=== PATIENT | male | born 1970 | race Caucasian/White ===

== ENCOUNTER 2018-01-11 09:46 | Outpatient (CLI) | payer OTHER ==
--- NOTE | 2018-01-11 12:21 | RAD ---
RIGHT SHOULDER ARTHROGRAM: History: Pain. Comparison: None. FINDINGS: The patient was brought to the fluoroscopy suite where all questions were answered. Right arm was prepped and draped in normal sterile fashion. Attempt was made to anesthetize the right shoulder although the procedure had to be terminated as the patient was unable to tolerate laying in supine position and was getting a sick feeling thinking about the needle injection. IMPRESSION: Right shoulder arthrogram aborted before Lidocaine was inserted as the patient was unable to tolerate the needles. Patient will proceed to CT portion of the examination without intraarticular contrast. POS: [facility]
--- NOTE | 2018-01-11 13:29 | CT ---
CT RIGHT SHOULDER WITHOUT CONTRAST: HISTORY: M24.811, right shoulder pain and sprain. COMPARISON: Shoulder arthrogram. FINDINGS: The examination was performed without intraarticular contrast as the patient was unable to tolerate t he exam due to not wanting any needle injections. Soft Tissues: Numerous mildly prominent right axillary lymph nodes as well as numerous lymph nodes involving the ri ght chest wall similar to the CT dissection protocol CT. Bones: Moderate degenerative disease acromioclavicular joint. There is narrowing of the glenohumeral joint with osteophyte formation. There is a calcification in the superior acromioclavicular joint capsule. There is a type III acromion. No glenoid fracture. Numerous insertional cysts of the greater tuberosity. There is atrophy of the supraspinatus muscle, approximately 20-30% atrophy, with likely a full-thickn ess supraspinatus tendon tear. The supraspinatus tendon is retracted to the glenohumeral joint. The lung parenchyma appears clear. IMPRESSION: 1. Type III acromion with undersurface spur. 2. Suggestion of a full-thickness supraspinatus tendon tear retracted to the mid humeral head. This is incompletely evaluated without intraarticular contrast. 3. Extensive right axillary adenopathy. Fine needle aspiration and core biopsy is recommended. 4. 20 - 30% atrophy supraspinatus muscle. CODE T POS: [facility]
== END 2018-01-11 09:47 | disposition home or self-care (01) ==
LOC: RAD 09:46
PROVIDERS: ATTEND Family Medicine
DX: M24.811 Other specific joint derangements of right shoulder, not elsewhere classified (principal); S63.91XD Sprain of unspecified part of right wrist and hand, subsequent encounter; M53.3 Sacrococcygeal disorders, not elsewhere classified; S30.0XXD Contusion of lower back and pelvis, subsequent encounter; W11.XXXD Fall on and from ladder, subsequent encounter; R59.0 Localized enlarged lymph nodes; M75.91 Shoulder lesion, unspecified, right shoulder; M62.511 Muscle wasting and atrophy, not elsewhere classified, right shoulder
CPT/HCPCS: 23350

== ENCOUNTER 2019-02-10 14:59 | Emergency (ER) | payer SELFPAY ==
--- NOTE | 2019-02-10 15:32 | RAD ---
PA AND LATERAL VIEWS CHEST: Date: 02/10/19 HISTORY: Shortness of breath, cough, congestion, fever, chest pain. FINDINGS: Comparison made with exam of 02/01/18. The heart size is borderline. The lungs are well expanded without lobar consolidation, pneumothoraces , gayle pulmonary edema, or pleural effusions. No acute osseous abnormalities are seen. IMPRESSION: No acute process. POS: OFF
[2019-02-10 15:48] LABS: Hemoglobin 16.6 g/dL (14.0-18.0); Mean Corpuscular HGB CONC 34.1 g/dL (32.0-36.0); Mean Corpuscular Hemoglobin 31.7 pg (27.0-31.0); Mean Corpuscular Volume 92.8 fL (78.0-98.0); Mean Platelet Volume 7.3 fL (7.4-10.4); Platelet Count 173 thou/uL (130-400); RBC Distribution Width 11.8 % (11.5-14.5); Red Blood Cell (RBC) Count 5.24 mill/uL (4.70-6.10); White Blood Cell (WBC) Count 3.4 thou/uL (4.8-10.8)
[2019-02-10 16:10] LABS: Band 10 % (5-11); Lymphocytes 46 % (21-51); MDiff Complete? YES; Monocytes 12 % (0-10); Neutrophil 32 % (42-75); Platelet Morphology Comment Appears Adequate
[2019-02-10 16:14] LABS: ALT (SGPT) 30 U/L (8-55); AST (SGOT) 45 U/L (5-34); Albumin 4.1 g/dL (3.5-5.0); Alkaline Phosphatase 100 U/L (40-150); Anion Gap 16 mmol/L (10-20); BUN (Urea Nitrogen) 10 mg/dL (8.9-20.6); Bilirubin, Total 0.4 mg/dL (0.2-1.2); CK (CPK) 202 U/L (30-200); Calc. Creatinine Clearance 0 mL/min (70-130); Calcium 9.2 mg/dL (7.8-10.44); Carbon Dioxide 20 mmol/L (22-29); Chloride 103 mmol/L (98-107); Estimated GFR-MDRD Greater than 90; Globulin 4.6 g/dL (2.4-3.5); Glucose 91 mg/dL (70-105); Potassium 4.5 mmol/L (3.5-5.1); Protein, Total 8.7 g/dL (6.0-8.3); Sodium 134 mmol/L (136-145)
== END 2019-02-10 17:14 | disposition home or self-care (01) ==
LOC: ERS 14:59
DX: J06.9 Acute upper respiratory infection, unspecified (principal); R07.89 Other chest pain; E66.9 Obesity, unspecified; F17.210 Nicotine dependence, cigarettes, uncomplicated
CPT/HCPCS: 36415; 71046; 80053; 82550; 84484; 85025; 87804; 93005

== ENCOUNTER 2019-05-26 09:59 | Inpatient (IN) | payer BC, SELFPAY ==
[2019-05-26 10:24] LABS: #Basophils 0.1 thou/uL (0.0-0.2); #Eosinphils 0.1 thou/uL (0.0-0.7); #Monocytes 0.6 thou/uL (0.11-0.59); #Neutrophils 3.6 thou/uL (1.40-6.50); %Basophils 1.1 % (0.0-1.0); %Eosinophils 2.2 % (0.0-10.0); %Monocytes 9.6 % (0.0-10.0); %Neutrophils 56.2 % (42.0-75.0); Hemoglobin 15.1 g/dL (14.0-18.0); Mean Corpuscular HGB CONC 34.4 g/dL (32.0-36.0); Mean Corpuscular Hemoglobin 31.4 pg (27.0-31.0); Mean Corpuscular Volume 91.4 fL (78.0-98.0); Mean Platelet Volume 6.5 fL (7.4-10.4); Platelet Count 235 thou/uL (130-400); RBC Distribution Width 12.4 % (11.5-14.5); Red Blood Cell (RBC) Count 4.81 mill/uL (4.70-6.10); White Blood Cell (WBC) Count 6.5 thou/uL (4.8-10.8)
--- NOTE | 2019-05-26 10:42 | CT ---
CT Brain WO Con History: Level 1 stroke alert. Unable to move extremities and ambulate Comparison: CT brain 2017 Findings: No acute hemorrhage or infarct. No midline shift or mass effect. Ventricular size and extra -axial CSF spaces are normal. Calvarium is intact. Paranasal sinuses and mastoids are clear. Impression: No acute intracranial abnormality. Code CR ordering provider 10:38 AM
[2019-05-26 10:54] LABS: INR-International Normal Ratio 0.9; PTT 26.6 SEC (22.9-36.1); Prothrombin Time 12.6 SEC (12.0-14.7)
[2019-05-26 11:00] LABS: ALT (SGPT) 26 U/L (8-55); AST (SGOT) 25 U/L (5-34); Albumin 4.1 g/dL (3.5-5.0); Alkaline Phosphatase 113 U/L (40-150); Anion Gap 12 mmol/L (10-20); BUN (Urea Nitrogen) 10 mg/dL (8.9-20.6); Bilirubin, Total 0.4 mg/dL (0.2-1.2); CK (CPK) 215 U/L (30-200); Calc. Creatinine Clearance 0 mL/min (70-130); Carbon Dioxide 24 mmol/L (22-29); Chloride 106 mmol/L (98-107); Estimated GFR-MDRD Greater than 90; Globulin 3.7 g/dL (2.4-3.5); Glucose 90 mg/dL (70-105); Potassium 4.2 mmol/L (3.5-5.1); Protein, Total 7.8 g/dL (6.0-8.3); Sodium 138 mmol/L (136-145)
--- NOTE | 2019-05-26 11:03 | CT ---
CTA Angio Head W WO Con History: Level 1 stroke alert. Unable to move extremities and ambulate Comparison: CT brain same day Findings: CT angiogram of the head and neck performed after the intravenous ministration of contrast. 3-D rendering provided. Lung apices are clear. Transverse aortic size is normal. The vertebral arteries are codominant. Origins of the vertebral arteries appear patent. Right common carotid artery is patent. Right internal carotid artery is patent. No hemodynamically si gnificant stenosis per NASCET criteria. Left common carotid artery is patent. Left internal carotid artery is patent. No hemodynamically sign ificant stenosis per NASCET criteria. No cervical spine fracture. [place] is patent without stenosis, thrombosis, nor aneurysm formation. Impression: 1. Patent [place] of [place] without stenosis, thrombosis, nor aneurysm formation. 2. No hemodynamically significance stenosis of the internal carotid arteries per NASCET criteria. Code CR - Ordering provider at 11:00 AM Transcribed Date/Time: 05/26/2019 11:06 AM
[2019-05-26] MEDS ORDERED: ISOVUE-370 76%-LOCM 1 ML ONE (11:15)
--- NOTE | 2019-05-26 12:04 | CT ---
CT BRAIN WITHOUT CONTRAST HISTORY: Level 1 stroke. Status post TPA COMPARISON: 1.5 hours ago. FINDINGS/IMPRESSION: There is residual contrast from the recent CTA which reduces the sensitivity of the exam. No definite acute infarct or hemorrhage is seen since the previous exam of 10:33 AM from same date.
[2019-05-26 13:11] VITALS: BMI 41.7
[2019-05-26 13:20] VITALS: TEMP 98.3
--- NOTE | 2019-05-27 09:16 | PRG ---
DATE OF SERVICE: 05/27/2019 SUBJECTIVE: This morning, he is awake, responsive. No headache. No shortness of breath. No chest pain. Moves all 4 extremities. OBJECTIVE: VITAL SIGNS: Blood pressure 125/83, saturations 97% on room air, pulse 67, afebrile. CHEST: No wheezing or crackles. CARDIAC: Normal S1, S2. ABDOMEN: No masses. LABORATORY DATA: Labs unremarkable. Cholesterol unremarkable. ASSESSMENT: Status post stroke protocol with tPA on board, history of migraine headaches. PLAN: He appears to be stable. Disposition as per primary care physician. Pulmonary will follow at a distance. Job ID: [id number]
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
--- NOTE | 2019-05-29 08:19 | CON ---
DATE OF CONSULTATION: HISTORY OF PRESENT ILLNESS: Yogesh Jolley is a morbidly obese gentleman , who apparently woke up this morning being fine. He went to work and shortly thereafter he felt weak, slumped up, called his . She took him to the house, where she apparently found out it did not look right, brought him to the ER at [facility], where apparently a stroke protocol was initiated. He has received in the ER tPA protocol after CT head angiogram no aneurusom_. Clearly, he had no localizing symptoms. PAST MEDICAL HISTORY: Pertinent for generalized lymphadenopathy that apparently in the past was suggestive of lymphoma about a year ago, but no biopsy was done because of financial issues. He is scheduled to have one done in about a month. He has a spleen repair, he has a TENS unit. He had a cellulitis of the left leg. Morbidly obese, he probably has sleep apnea. No hypertension. MEDICATIONS: Chronic medication, none. PAST SURGICAL HISTORY: Previous surgeries as outlined. He has been here numerous times in the hospital and has had previous right-sided facial numbness, found to be secondary to migraine headaches. He had a Cardiolite stress test done by Dr. Looney some time ago, which I am told was normal. He had a CT chest on 01/13/2017, which showed he had a right axillary lymph node that was enlarged. Now, he has a right groin lymph node that was enlarged. He had a laceration in left forearm that was repaired and sutured by physician over here. SOCIAL HISTORY: Pack-a-day smoker. No alcohol. No substance abuse. 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 HOME MEDICATIONS: He tells me none. ALLERGIES: TOMATO. PHYSICAL EXAMINATION: VITAL SIGNS: Blood pressure 114/81, pulse 65, respiratory rate 19, 02 SATs 98% . NEUROLOGIC: Awake, alert, responsive, moves all 4 extremities. CHEST: No wheezing or crackles. CARDIAC: Normal S1 and S2. No gallops. ABDOMEN: Distended. His right inguinal lymph node is enlarged. LABORATORY DATA: Labs, unremarkable. CT brain, no hemorrhage was seen. His initial CT angiogram with contrast shows no thrombus or clots. IMPRESSION: 1. TPA given for possible cerebrovascular accident like symptoms. 2. History of migraine headaches. 3. Obesity. 4. Right groin lymphadenopathy. 5. Probably sleep apnea. PLAN: Pulmonary hi, we will follow while in the ICU. Suggest he has a formal sleep study done whenever he is able to afford to do so. Encourage to lose weight, encourage to quit smoking. Encourage to have lymph node biopsy while in the hospital, he will discuss that with his primary care physician. Pulmonary will follow only while in the ICU. Consultation note 70 minutes, 50% direct patient care. Job ID: [id number] MTDD
--- NOTE | 2019-05-29 09:11 | HP ---
CHIEF COMPLAINT: Slurred speech, dizziness and weakness. HISTORY OF PRESENT ILLNESS: The patient was at work this morning where he felt very dizzy and funny. no loss of consciousness. It was like spinning and felt like falling down, had blurry vision and he was taken to home and he could not speak. His speech was slurred and he could not move any of his extremities, both upper extremity and lower extremity. He was not able to work or not move any of the extremities, so EMS was called and the patient was brought to the emergency room, where ER physician thought he has acute stroke and he was given tPA. Initial workup did not reveal any evidence of any stroke or any bleeding of anything, but in a few minutes to an hour, the patient completely recovered. He was able to move all extremities and was able to speak as well. He was transferred to the ICU because of tPA and for close monitoring. Currently, the patient feels fine. He moves all extremities. PAST MEDICAL HISTORY: 1. He has a history of migraine with facial numbness in the past. 2. History of axillary lymphadenopathy and iliac lymphadenopathy, right side. 3. History of pulmonary nodule. 4. History of staph infection to the leg and he was told about this lymphadenopathy could be lymphoma, but no biopsy was done at anytime. 5. Anxiety disorder by history. PAST SURGICAL HISTORY: 1. Status post orthopedic surgery. 2. Status post TENS unit implanted to the back. 3. History of spleen repair. CURRENT MEDICATIONS: None. ALLERGIES: NKDA. SOCIAL HISTORY: Nothing. SOCIAL HISTORY: The patient lives with family. No history of alcohol intake. Smokes a pack a day. REVIEW OF SYSTEMS: CARDIOVASCULAR: No chest pain. No shortness of breath. RESPIRATORY: No fever or cough. GASTROINTESTINAL: No nausea or vomiting. No abdominal pain. CENTRAL NERVOUS SYSTEM: has headche and dizziness PHYSICAL EXAMINATION: GENERAL: The patient is alert, awake, and oriented x3. VITAL SIGNS: Temperature 98, pulse 76, resp 20, blood pressure 120/80. HEENT: Head is normocephalic and atraumatic. Pupils are equal and reactive. Nasopharynx is pale and dry. Hard and soft palate. No lesions. SKIN: Turgor decreased. NECK: Supple. No JVD. LUNGS: Bilateral air entry present. No rales. No rhonchi. HEART: S1 and S2. Regular. ABDOMEN: Soft. No tenderness. Normal bowel sounds. RECTAL: Deferred. CENTRAL NERVOUS SYSTEM: The patient is alert, awake, oriented x3. Motor system , power 4/5 in all extremities. Deep tendon reflexes, 2+ bilaterally. Plantars downgoing. Sensory intact. LABORATORY DATA: CBC shows WBC 6.5, hemoglobin 13, hematocrit 42, platelets 235. Metabolic panel; sodium 138, potassium 4.2, chloride 102, C02 24, BUN 10, creatinine 0.79, glucose 90. Troponin less than 0.01. CT of the brain unremarkable. CTA of the [place] of [place] is also unremarkable. EKG shows normal sinus rhythm, no acute ST-T changes seen. ASSESSMENT: 1. History of dizziness, blurry vision and slurred speech, questionable cerebrovascular accident versus transient ischemic attack. 2. History of right axillary lymphadenopathy. 3. Right possible inguinal lymphadenopathy 4. History of migraine. PLAN: 1. Vital signs q.4 hours. 2. Activities: As tolerated. 3. Allergies: NKDA. 4. Hep-Lock. 5. Neuro monitoring. 6. Neurology consult. 7. Regular diet. Job ID: [id number] [facility]
== END 2019-05-27 14:51 | disposition home or self-care (01) | DRG 312 ==
LOC: ERS 09:59 → CCU 12:30
PROVIDERS: ADMIT Internal Medicine; ATTEND Internal Medicine
DX: R55 Syncope and collapse (principal); F41.9 Anxiety disorder, unspecified; Z87.891 Personal history of nicotine dependence; Z98.1 Arthrodesis status
CPT/HCPCS: 36415; 36416; 70450; 70496; 70498; 80053; 82550; 84484; 85025; 93005; J2997

== ENCOUNTER 2019-07-01 00:58 | Observation (INO) | payer BC ==
[2019-07-01 01:24] LABS: #Basophils 0.1 thou/uL (0.0-0.2); #Eosinphils 0.2 thou/uL (0.0-0.7); #Lymphocytes 2.8 thou/uL (1.20-3.40); #Monocytes 0.7 thou/uL (0.11-0.59); #Neutrophils 3.7 thou/uL (1.40-6.50); %Eosinophils 2.1 % (0.0-10.0); %Lymphocytes 37.4 % (21.0-51.0); %Monocytes 9.3 % (0.0-10.0); %Neutrophils 50.1 % (42.0-75.0); Hemoglobin 15.6 g/dL (14.0-18.0); Mean Corpuscular HGB CONC 35.8 g/dL (32.0-36.0); Mean Corpuscular Hemoglobin 32.7 pg (27.0-31.0); Mean Corpuscular Volume 91.3 fL (78.0-98.0); Mean Platelet Volume 6.8 fL (7.4-10.4); Platelet Count 257 thou/uL (130-400); Red Blood Cell (RBC) Count 4.78 mill/uL (4.70-6.10); White Blood Cell (WBC) Count 7.4 thou/uL (4.8-10.8)
[2019-07-01] MEDS ORDERED: Morphine 10 MG/ML VIAL ONE (01:25)
[2019-07-01 01:45] LABS: ALT (SGPT) 26 U/L (8-55); AST (SGOT) 26 U/L (5-34); Albumin 4.2 g/dL (3.5-5.0); Alkaline Phosphatase 110 U/L (40-150); Anion Gap 12 mmol/L (10-20); BUN (Urea Nitrogen) 15 mg/dL (8.9-20.6); Bilirubin, Total 0.3 mg/dL (0.2-1.2); CK (CPK) 167 U/L (30-200); Calc. Creatinine Clearance 0 mL/min (70-130); Calcium 9.6 mg/dL (7.8-10.44); Carbon Dioxide 24 mmol/L (22-29); Chloride 105 mmol/L (98-107); Estimated GFR-MDRD 90; Globulin 4.3 g/dL (2.4-3.5); Glucose 119 mg/dL (70-105); Potassium 3.8 mmol/L (3.5-5.1); Protein, Total 8.5 g/dL (6.0-8.3); Sodium 137 mmol/L (136-145)
[2019-07-01] MEDS ORDERED: Nitroglycerin 2% Ointment 1 INCH/1 GM Packet ONE (01:54)
[2019-07-01] MEDS ORDERED: Ondansetron ODT 4 MG TAB SL PRN (03:20)
[2019-07-01] MEDS ORDERED: Ondansetron PF 4 MG/2 ML Vial IVP PRN (03:20)
[2019-07-01] MEDS ORDERED: Aspirin 325 MG TAB PO SCH ×2 (03:30→09:00)
[2019-07-01 03:43] VITALS: BMI 42.0
[2019-07-01 05:21] LABS: Troponin I Less than 0.010 ng/mL (< 0.028)
--- NOTE | 2019-07-01 07:58 | RAD ---
EXAM: Portable chest PROVIDED CLINICAL HISTORY: Chest pain COMPARISON: 01/13/2017 FINDINGS: Evaluation is limited by patient body habitus. The cardiac silhouette appears prominent. Lungs are hy poinflated. No focal consolidation, pleural fluid or pneumothorax evident. IMPRESSION: Hypoinflated exam without evidence for an acute cardiopulmonary process. Please correlate with subseq uently performed CT.
[2019-07-01 08:18] LABS: Troponin I Less than 0.010 ng/mL (< 0.028)
--- NOTE | 2019-07-01 08:46 | CT ---
PRELIMINARY REPORT/[facility]/EMERGENCY AFTER HOURS PROCEDURE: EXAM: CT Angiography Chest With Contrast EXAM DATE/TIME: 07/01/2019 1:32 AM CLINICAL HISTORY: 48 years old, male; Shortness of breath; Difficulty breathing or dyspnea; Patient HX: 48 y/o m, with h/o pe, recent CVA, presents to ED C/O sudden onset cp TECHNIQUE: Imaging protocol: Axial computed tomographic angiography images of the chest with intravenous contras t using CT angiography protocol. Coronal and sagittal reformatted images were created and reviewed. 3D rendering: MIP reconstructed images were created and reviewed. COMPARISON: No relevant prior studies available. FINDINGS: Pulmonary arteries: No pulmonary emboli. Aorta: Unremarkable. No aortic aneurysm. No aortic dissection. Lungs: Minimal biapical paraseptal emphysema. Pleural space: Unremarkable. No pneumothorax. No pleural effusion. Heart: Unremarkable. No cardiomegaly. No pericardial effusion. Lymph nodes: Multiple pathologically enlarged lymph nodes within the right axilla, the largest measur ing approximately 2.4 cm in short axis diameter. Bones/joints: Old, healed left lateral rib fractures. Soft tissues: Unremarkable. IMPRESSION: 1. No pulmonary emboli. 2. Multiple pathologically enlarged lymph nodes within the right axilla, the largest measuring approx imately 2.4 cm in short axis diameter. Lymph nodes may be reactive or related to other pathology such as lymphoma or metastatic disease. Recommend further evaluation. EXAM: CT Angiography Abdomen With Contrast EXAM DATE/TIME: 07/01/2019 1:32 AM CLINICAL HISTORY: 48 years old, male; Shortness of breath; Difficulty breathing or dyspnea; Patient HX: 48 y/o m, with h/o pe, recent CVA, presents to ED C/O sudden onset cp TECHNIQUE: Imaging protocol: Axial computed tomographic angiography images of the abdomen with intravenous contr ast material. Coronal and sagittal reformatted images were created and reviewed. 3D rendering: MIP re constructed images were created and reviewed. COMPARISON: No relevant prior studies available. FINDINGS: Tubes, catheters and devices: Posterior bone stimulator device in place at the level of the L4 verteb ral body. VASCULATURE: Aorta: No aortic aneurysm. No aortic dissection. Celiac trunk and mesenteric arteries: No occlusion or significant stenosis. Renal arteries: No occlusion or significant stenosis. Left iliac arteries: Minimal atherosclerotic disease of the common iliac arteries bilaterally. ABDOMEN: Liver: Normal. No mass. Gallbladder and bile ducts: Normal. No calcified stones. No ductal dilation. Pancreas: Normal. No ductal dilation. Spleen: Normal. No splenomegaly. Adrenals: Normal. No mass. Kidneys and ureters: Normal. No hydronephrosis. Stomach and bowel: Unremarkable. No obstruction. No mucosal thickening. Appendix: Appendix normal. Intraperitoneal space: Unremarkable. No free air. No significant fluid collection. Bones/joints: Multilevel lumbar spine degenerative changes. Posterior decompression at the L5 level. Soft tissues: Unremarkable. Lymph nodes: Unremarkable. No enlarged lymph nodes. IMPRESSION: No acute abdominal or pelvic abnormality. Thank you for allowing us to participate in the care of your patient. Dictated and Authenticated by: Angel Montgomery MD 07/01/2019 1:52 AM Central Time ([place] & [place]) FINAL REPORT CT ANGIOGRAM OF THE THORACIC AORTA CT ANGIOGRAM OF THE ABDOMINAL AORTA: Date: 07/01/19 HISTORY: Chest pain. Previous pulmonary artery embolism. Evaluation for dissection of aorta. COMPARISON: 05/26/17. TECHNIQUE: CT angiogram of the thoracic and abdominal aorta performed in the axial plane. Three-dimensional refo rmatted image are submitted for interpretation. FINDINGS: Trachea and central bronchi are patent. Dependent atelectatic changes. There is a focal opacity in th e left lower lobe, measuring 1.1 cm. This finding is unchanged when compared to the previous exam sug gesting an area of scarring. No significant pleural fluid or pneumothorax. No mediastinal mass, lymphadenopathy, or hematoma. Heart size is within normal limits. No significant pericardial fluid. Central pulmonary arteries are grossly unremarkable. Visualized solid organs are unremarkable. Visualized alimentary canal is also unremarkable. There are enlarged right axillary lymph nodes, don lar to the previous exam. CT ANGIOGRAM: The thoracic and abdominal aorta have a normal caliber. No aneurysm or dissection. The origin of the celiac artery, superior mesenteric artery, renal arteries, and inferior mesenteric artery is unremark able. Aortic bifurcation is unremarkable. IMPRESSION: This report is in agreement with the preliminary report by Heidi. 1. No evidence of aneurysm or dissection of the thoracic aorta. 2. Enlarged right axillary lymph nodes, similar to previous examination. 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 Nevertheless, consider possible clinical correlation and possible biopsy. POS: [facility]
[2019-07-01] MEDS ORDERED: ISOVUE-370 76%-LOCM 1 ML ONE (13:47)
[2019-07-01] MEDS ORDERED: Rivaroxaban 10 MG TAB PO SCH (17:00)
[2019-07-02] MEDS ORDERED: Regadenoson 0.4 MG/5 ML SYRINGE ONE (09:53)
[2019-07-02 11:58] VITALS: BP 123/71; TEMP 98.4
--- NOTE | 2019-07-02 14:10 | NM ---
NUCLEAR MEDICINE CARDIAC STRESS WITH EF AND WALL MOTION: HISTORY: Chest pain. COMPARISON: None. TECHNIQUE: A two day protocol was utilized. The patient was administered 29.2 millicuries of technetium 99m ses tamibi for rest imaging and 30.80 millicuries of technetium 99m sestamibi for stress imaging. Cardia c gating was performed. FINDINGS: A homogeneous distribution of the radiotracer of the left ventricle on the attenuation correction kartik ges. No reversibility or fixed defect. TID is 1.14 End-diastolic volume is 145 mL. End-systolic volume is 58 mL. CARDIAC GATING: Normal wall motion and thickening. Ejection fraction 60%. IMPRESSION: 1. No reversibility or fixed defect. 2. Ejection fraction 60%. POS: [facility]
--- NOTE | 2019-07-03 08:03 | HP ---
CHIEF COMPLAINT: Chest pain. HISTORY OF PRESENT ILLNESS: Mr. Jolley is a 48-year-old male with past medical history of lymphadenopathy in inguinal and axillary, came because of chest pain and some shortness of breath. Chest pain is pressure-like, nonradiating, associated with shortness of breath, but no nausea or vomiting. No diaphoresis. The patient states he has this shortness of breath all the time, but the chest pain started just now, so he came to the hospital. In the ER, the patient was evaluated and found to have normal cardiac enzymes and EKG, admitted to rule out myocardial infarction. The patient has been seeing a manager software development in [place] for his shortness of breath and he had an echocardiogram done there. He does not know the report reading. He is supposed to follow with manager software development next week. PAST MEDICAL HISTORY: 1. The patient was recently in the hospital for syncopal episode. 2. History of axillary and inguinal lymphadenopathy. The patient has seen a surgeon for biopsy, but not yet done. 3. Questionable history of pulmonary embolism, history of pulmonary nodule. 4. History of Staph infection in the left leg. PAST SURGICAL HISTORY: 1. Status post TENS unit implant to the back. 2. Status post spleen repair. 3. Status post orthopedic surgery. CURRENT MEDICATIONS: The patient was recently started on Xarelto by his manager software development. ALLERGIES: NKDA. FAMILY HISTORY: Nothing contributory. SOCIAL HISTORY: No history of smoking. No history of alcohol. The patient lives with family. REVIEW OF SYSTEMS: Unremarkable except chest pain. PHYSICAL EXAMINATION: GENERAL: The patient is alert, awake, oriented x3. VITAL SIGNS: Temperature 97, pulse respirations 20, and blood pressure 140/90. HEENT: Head is normocephalic and atraumatic. Pupils are equal and reactive. Nasopharynx is pale and dry. Hard and soft palate, no lesions. SKIN: Turgor decreased. NECK: Supple. No JVD. LUNGS: Bilateral air entry. No rales. No rhonchi. HEART: S1 and S2, regular. ABDOMEN: Soft. No distention. No tenderness. No organomegaly. Bowel sounds present. RECTAL: Deferred. CENTRAL NERVOUS SYSTEM: No focal deficit. LABORATORY DATA: CBC shows WBC 7.4, hemoglobin 15, hematocrit 43, platelets 257. Metabolic panel; sodium 137, potassium 3.8, chloride 105, creatinine 0.8, glucose 119. Troponin-I less than 0.010. D-dimer 0.49. CT with dissection protocol with CT angio chest, negative except for the axillary lymphadenopathy. Chest x-ray, negative. EKG shows normal sinus rhythm, no acute ST-T changes seen. ASSESSMENT: 1. Chest pain, atypical. Rule out myocardial infarction. 2. Hyperlipidemia. 3. Morbid obesity. PLAN: 1. Vital signs q.4 hours. 2. Activities as tolerated. 3. Allergies, NKDA. 4. Hep-Lock. 5. Troponin-I q.6 hours x2. 6. We will obtain a Cardiolite stress test. 7. Continue home medications. Job ID: [id number]
== END 2019-07-02 15:22 | disposition home or self-care (01) ==
LOC: ERS 00:58 → 2SW 02:56
PROVIDERS: ADMIT Internal Medicine; ATTEND Internal Medicine
DX: R07.89 Other chest pain (principal); E78.5 Hyperlipidemia, unspecified; E66.01 Morbid (severe) obesity due to excess calories; R59.0 Localized enlarged lymph nodes; F41.9 Anxiety disorder, unspecified; F17.210 Nicotine dependence, cigarettes, uncomplicated; Z68.41 Body mass index [BMI] 40.0-44.9, adult; Z86.73 Personal history of transient ischemic attack (TIA), and cerebral infarction without residual deficits; Z91.018 Allergy to other foods; Z79.01 Long term (current) use of anticoagulants
CPT/HCPCS: 36415; 71045; 71275; 78452; 80053; 82550; 83880; 84484; 85025; 85379; 93005; 93017; 94760; 96374; A9500; G0378; J2270; J2785; Q9966

== ENCOUNTER 2019-12-14 15:06 | Emergency (ER) | payer BC, SELFPAY ==
--- NOTE | 2019-12-14 15:34 | CT ---
CT BRAIN WITHOUT CONTRAST: HISTORY: Nystagmus, confusion COMPARISON: 05/26/2019 FINDINGS: No evidence of acute infarct, hemorrhage, midline shift or abnormal extra-axial fluid collections is seen. The ventricular size is appropriate and the basilar cisterns are patent. The bony calvarium is intact. The visualized paranasal sinuses and mastoid air cells are well aerated. IMPRESSION: No CT evidence of acute intracranial process.
[2019-12-14 16:28] LABS: #Basophils 0.1 thou/uL (0.0-0.2); #Eosinphils 0.1 thou/uL (0.0-0.7); #Lymphocytes 1.9 thou/uL (1.20-3.40); #Monocytes 0.5 thou/uL (0.11-0.59); #Neutrophils 4.3 thou/uL (1.40-6.50); %Basophils 0.8 % (0.0-1.0); %Eosinophils 2.1 % (0.0-10.0); %Lymphocytes 27.5 % (21.0-51.0); %Monocytes 7.5 % (0.0-10.0); %Neutrophils 62.2 % (42.0-75.0); Hemoglobin 15.8 g/dL (14.0-18.0); Mean Corpuscular HGB CONC 33.9 g/dL (32.0-36.0); Mean Corpuscular Hemoglobin 31.3 pg (27.0-31.0); Mean Corpuscular Volume 92.4 fL (78.0-98.0); Platelet Count 212 thou/uL (130-400); Red Blood Cell (RBC) Count 5.06 mill/uL (4.70-6.10)
[2019-12-14 16:50] LABS: Acetaminophen Less than 6.0 mcg/mL (10.0-30.0); Alcohol Less than 10 mg/dL (Less than 10); Lipase 35 U/L (8-78); Salicylate Less than 8.0 mg/dL (15.0-30.0)
[2019-12-14 16:51] LABS: ALT (SGPT) 35 U/L (8-55); AST (SGOT) 33 U/L (5-34); Albumin 3.9 g/dL (3.5-5.0); Alkaline Phosphatase 90 U/L (40-110); Anion Gap 13 mmol/L (10-20); BUN (Urea Nitrogen) 12 mg/dL (8.4-25.7); Bilirubin, Total 0.4 mg/dL (0.2-1.2); CK (CPK) 198 U/L (30-200); Calc. Creatinine Clearance 0 mL/min (70-130); Calcium 9.1 mg/dL (7.8-10.44); Carbon Dioxide 24 mmol/L (22-29); Chloride 104 mmol/L (98-107); Estimated GFR-MDRD Greater than 90; Globulin 4.1 g/dL (2.4-3.5); Glucose 106 mg/dL (70-105); Potassium 3.7 mmol/L (3.5-5.1); Sodium 137 mmol/L (136-145)
--- NOTE | 2019-12-16 13:57 | EKG ---
Test Reason : Blood Pressure : / mmHG Vent. Rate : 090 BPM Atrial Rate : 090 BPM P-R Int : 186 ms QRS Dur : 098 ms QT Int : 360 ms P-R-T Axes : 022 026 042 degrees QTc Int : 440 ms Normal sinus rhythm Normal ECG Confirmed by VIDHI THOMAS DO ([id number]), society editor RADHA NORTON ([id number] on 12/16/2019 1:57:01 PM Referred By: Confirmed By:VIDHI THOMAS DO
== END 2019-12-14 18:25 | disposition home or self-care (01) ==
LOC: ERS 15:06
DX: G40.109 Localization-related (focal) (partial) symptomatic epilepsy and epileptic syndromes with simple partial seizures, not intractable, without status epilepticus (principal); F41.9 Anxiety disorder, unspecified; B37.9 Candidiasis, unspecified; F17.210 Nicotine dependence, cigarettes, uncomplicated; Z79.01 Long term (current) use of anticoagulants; Z86.73 Personal history of transient ischemic attack (TIA), and cerebral infarction without residual deficits; Z86.718 Personal history of other venous thrombosis and embolism
CPT/HCPCS: 36415; 70450; 80053; 80307; 82550; 83690; 84443; 84484; 85025; 93005

== ENCOUNTER 2020-06-12 12:36 | Emergency (ER) | payer SELFPAY ==
[2020-06-12 14:04] LABS: #Basophils 0.1 thou/uL (0.0-0.2); #Eosinphils 0.1 thou/uL (0.0-0.7); #Monocytes 0.5 thou/uL (0.11-0.59); #Neutrophils 3.2 thou/uL (1.40-6.50); %Basophils 1.2 % (0.0-1.0); %Eosinophils 1.4 % (0.0-10.0); %Lymphocytes 34.1 % (21.0-51.0); %Monocytes 8.1 % (0.0-10.0); %Neutrophils 55.3 % (42.0-75.0); Hemoglobin 16.2 g/dL (14.0-18.0); Mean Corpuscular HGB CONC 33.3 g/dL (32.0-36.0); Mean Corpuscular Hemoglobin 31.2 pg (27.0-31.0); Mean Corpuscular Volume 93.7 fL (78.0-98.0); Mean Platelet Volume 6.8 fL (7.4-10.4); Platelet Count 232 thou/uL (130-400); RBC Distribution Width 12.1 % (11.5-14.5); White Blood Cell (WBC) Count 5.9 thou/uL (4.8-10.8)
[2020-06-12 14:32] LABS: ALT (SGPT) 46 U/L (8-55); AST (SGOT) 42 U/L (5-34); Albumin 3.9 g/dL (3.5-5.0); Alkaline Phosphatase 108 U/L (40-110); Anion Gap 10 mmol/L (10-20); BUN (Urea Nitrogen) 9 mg/dL (8.4-25.7); Bilirubin, Total 0.3 mg/dL (0.2-1.2); Calc. Creatinine Clearance 0 mL/min (70-130); Carbon Dioxide 25 mmol/L (22-29); Chloride 105 mmol/L (98-107); Estimated GFR-MDRD Greater than 90; Globulin 4.7 g/dL (2.4-3.5); Glucose 142 mg/dL (70-105); Lipase 20 U/L (8-78); Protein, Total 8.6 g/dL (6.0-8.3); Sodium 136 mmol/L (136-145)
[2020-06-12] MEDS ORDERED: Morphine 4 MG/ML VIAL ONE (15:06)
--- NOTE | 2020-06-12 15:59 | CT ---
CT ABDOMEN AND PELVIS WITH CONTRAST: 06/12/20 HISTORY: Abdominal pain. Fullness of abdomen. COMPARISON: Reference made to an aortic dissection protocol 07/01/19. FINDINGS: General appearance of the peripheral triangular shaped pleural scarring in the left lower lobe. No pe ricardial effusion. Diffuse hepatic steatosis with hepatomegaly. Spleen is unremarkable as well as th e pancreas and adrenal glands. The gallbladder is unremarkable. The large right superficial inguinal lymph node measures up to 2.3 cm in size. This is not significantly changed from 2016. The appendix is visualized and is normal. No free intraperitoneal gas or fluid. Prior laminectomy yenni nge L5. Osseous simulator is seen at L4-5 facet joints. Celiac trunk and superior mesenteric arteries are patent. No hydronephrosis. IMPRESSION: 1. No acute inflammatory process of abdomen or pelvis. 2. Large right superficial inguinal lymph node and pelvic lymph nodes similar to 2016. 3. Hepatic steatosis and hepatomegaly. 4. Normal appendix. POS: HOME
== END 2020-06-12 16:14 | disposition home or self-care (01) ==
LOC: ERS 12:36
DX: K59.00 Constipation, unspecified (principal); F41.9 Anxiety disorder, unspecified; F17.210 Nicotine dependence, cigarettes, uncomplicated; Z86.73 Personal history of transient ischemic attack (TIA), and cerebral infarction without residual deficits
CPT/HCPCS: 36415; 74177; 80053; 83690; 85025; 96374; J2270

== ENCOUNTER 2021-01-21 11:17 | Outpatient (CLI) | payer OTHER ==
--- NOTE | 2021-01-21 12:08 | RAD ---
2 views of the lumbar spine : 01/21/2021 COMPARISON: None HISTORY: Acute right-sided pain, history of prior lumbar spine surgery FINDINGS: Stimulating leads overlie the posterior elements at L4. The patient appears status post bilateral laminectomy at L4-5. There is lower lumbar spine facet hype rtrophy at the L3-4, L4-5, and L5-S1 levels, left greater than right. There is disc space narrowing with degenerative endplate change at the L4-5 and L5-S1 levels. There i s no anterolisthesis or retrolisthesis noted. At L2-3 there is mild anterior osteophyte formation. IMPRESSION: Chronic/degenerative changes within the lumbar spine as detailed above.
--- NOTE | 2021-01-21 12:09 | RAD ---
Frontal, swimmer's lateral, and lateral imaging of the thoracic spine: 01/21/2021 COMPARISON: None HISTORY: Pain FINDINGS: 3 views of the thoracic spine provided. Thoracic pedicles appear intact on frontal imaging. Lateral imaging demonstrates no discrete fracture or anterolisthesis/retrolisthesis. Body habitus limits detailed assessment of the cervicothoracic junction and the thoracolumbar junction on the late ral view. IMPRESSION: No acute osseous abnormality.
== END 2021-01-21 11:18 | disposition home or self-care (01) ==
LOC: BICRAD 11:17
PROVIDERS: ATTEND Nurse Practitioner Family
DX: M54.6 Pain in thoracic spine (principal); M47.816 Spondylosis without myelopathy or radiculopathy, lumbar region; M47.817 Spondylosis without myelopathy or radiculopathy, lumbosacral region
CPT/HCPCS: 72072; 72100

== ENCOUNTER 2021-01-30 12:15 | Outpatient (CLI) | payer OTHER | END 2021-01-30 12:16 | disposition home or self-care (01) | LOC: EEG 12:15 | PROVIDERS: ATTEND Psychiatry & Neurology Neurology | DX: G40.209 Localization-related (focal) (partial) symptomatic epilepsy and epileptic syndromes with complex partial seizures, not intractable, without status epilepticus (principal) | CPT/HCPCS: 95816 ==

== ENCOUNTER 2021-02-05 09:51 | Emergency (ER) | payer OTHER ==
[2021-02-05 11:27] LABS: #Basophils 0.1 thou/uL (0.0-0.2); #Eosinphils 0.1 thou/uL (0.0-0.7); #Lymphocytes 2.2 thou/uL (1.20-3.40); #Monocytes 0.4 thou/uL (0.11-0.59); #Neutrophils 3.7 thou/uL (1.40-6.50); %Basophils 0.9 % (0.0-1.0); %Eosinophils 1.7 % (0.0-10.0); %Lymphocytes 33.6 % (21.0-51.0); %Monocytes 6.8 % (0.0-10.0); Hemoglobin 16.6 g/dL (14.0-18.0); Mean Corpuscular Hemoglobin 31.3 pg (27.0-31.0); Mean Corpuscular Volume 94.6 fL (78.0-98.0); Mean Platelet Volume 6.8 fL (7.4-10.4); Platelet Count 255 thou/uL (130-400); RBC Distribution Width 11.8 % (11.5-14.5); Red Blood Cell (RBC) Count 5.32 mill/uL (4.70-6.10); White Blood Cell (WBC) Count 6.4 thou/uL (4.8-10.8)
[2021-02-05] MEDS ORDERED: Dexamethasone 4 mg/ml Vial ONE (11:33)
[2021-02-05] MEDS ORDERED: Morphine 4 MG/ML VIAL ONE (11:33)
[2021-02-05] MEDS ORDERED: Ondansetron PF 4 MG/2 ML Vial ONE (11:33)
[2021-02-05] MEDS ORDERED: Ketorolac Tromethamine 30 MG/ML VIAL ONE (11:33)
[2021-02-05] MEDS ORDERED: Diazepam 10 MG/2 ML SYRINGE ONE (11:36)
[2021-02-05 11:47] LABS: ALT (SGPT) 45 U/L (8-55); AST (SGOT) 44 U/L (5-34); Albumin 4.1 g/dL (3.5-5.0); Alkaline Phosphatase 113 U/L (40-110); Anion Gap 15 mmol/L (10-20); BUN (Urea Nitrogen) 11 mg/dL (8.4-25.7); Bilirubin, Total 0.6 mg/dL (0.2-1.2); Calc. Creatinine Clearance 0 mL/min (70-130); Calcium 9.3 mg/dL (7.8-10.44); Carbon Dioxide 24 mmol/L (22-29); Chloride 102 mmol/L (98-107); Globulin 4.4 g/dL (2.4-3.5); Glucose 130 mg/dL (70-105); Potassium 4.2 mmol/L (3.5-5.1); Protein, Total 8.5 g/dL (6.0-8.3); Sodium 137 mmol/L (136-145)
[2021-02-05 11:53] LABS: Bilirubin Negative (Negative); Blood, Urine Negative (Negative); Clarity Clear (Clear); Glucose, Urine (Dipstick) Normal (Negative); Ketone, Urine Negative (Negative); Leukocyte Negative Leu/uL (Negative); Nitrite Negative (Negative); Protein, Urine (Dipstick) 10 mg/dL (Neg-Trace); Specific Gravity, Urine 1.027 (1.002-1.036); Urobilinogen Normal mg/dL (Less than 2); pH, Urine 5.5 (5.0-9.0)
[2021-02-05] MEDS ORDERED: Iopamidol-370 76% 500 ML 1 ML ONE (12:09)
== END 2021-02-05 16:35 | disposition home or self-care (01) ==
LOC: ERS 09:51
DX: M54.5 Low back pain (principal); E11.9 Type 2 diabetes mellitus without complications; I10 Essential (primary) hypertension; E66.9 Obesity, unspecified; Z86.73 Personal history of transient ischemic attack (TIA), and cerebral infarction without residual deficits; F17.210 Nicotine dependence, cigarettes, uncomplicated
CPT/HCPCS: 36415; 72100; 72133; 80053; 81003; 85025; 85652; 86140; 96374; 96375; J1100; J1885; J2270; J2405; J3360; Q9967

== ENCOUNTER 2021-10-01 13:43 | Outpatient (CLI) | payer OTHER ==
[~2021-10-01 13:43] MED LIST: Iopamidol 370 76% 100 ML VIAL ONE
== END 2021-10-01 13:44 | disposition home or self-care (01) ==
LOC: BICCT 13:43
PROVIDERS: ATTEND Specialist
DX: E66.01 Morbid (severe) obesity due to excess calories (principal); R59.0 Localized enlarged lymph nodes; J98.4 Other disorders of lung; R16.1 Splenomegaly, not elsewhere classified
CPT/HCPCS: 70491; 71260; 74177; Q9967

== ENCOUNTER 2021-10-09 12:34 | Emergency (ER) | payer OTHER ==
[2021-10-09 14:30] LABS: #Basophils 0.1 thou/uL (0.0-0.2); #Eosinphils 0.1 thou/uL (0.0-0.7); #Lymphocytes 2.6 thou/uL (1.20-3.40); #Monocytes 0.7 thou/uL (0.11-0.59); #Neutrophils 4.7 thou/uL (1.40-6.50); %Basophils 0.7 % (0.0-1.0); %Eosinophils 1.5 % (0.0-10.0); %Lymphocytes 31.7 % (21.0-51.0); %Monocytes 8.7 % (0.0-10.0); %Neutrophils 57.4 % (42.0-75.0); Hemoglobin 15.2 g/dL (14.0-18.0); Mean Corpuscular HGB CONC 34.9 g/dL (32.0-36.0); Mean Corpuscular Hemoglobin 32.9 pg (27.0-31.0); Mean Platelet Volume 6.4 fL (7.4-10.4); Platelet Count 255 thou/uL (130-400); RBC Distribution Width 11.9 % (11.5-14.5); Red Blood Cell (RBC) Count 4.64 mill/uL (4.70-6.10); White Blood Cell (WBC) Count 8.1 thou/uL (4.8-10.8)
[2021-10-09 15:06] LABS: ALT (SGPT) 28 U/L (8-55); AST (SGOT) 26 U/L (5-34); Albumin 3.8 g/dL (3.5-5.0); Alkaline Phosphatase 107 U/L (40-110); Anion Gap 10 mmol/L (10-20); BUN (Urea Nitrogen) 11 mg/dL (8.4-25.7); Bilirubin, Total 0.4 mg/dL (0.2-1.2); CK (CPK) 144 U/L (30-200); Calc. Creatinine Clearance 0 mL/min (70-130); Calcium 9.4 mg/dL (7.8-10.44); Carbon Dioxide 27 mmol/L (22-29); Chloride 103 mmol/L (98-107); Globulin 4.3 g/dL (2.4-3.5); Glucose 167 mg/dL (70-105); Potassium 3.8 mmol/L (3.5-5.1); Protein, Total 8.1 g/dL (6.0-8.3); Sodium 136 mmol/L (136-145)
== END 2021-10-09 16:25 | disposition home or self-care (01) ==
LOC: ERS 12:34
DX: R06.00 Dyspnea, unspecified (principal); R07.9 Chest pain, unspecified; R55 Syncope and collapse; R60.0 Localized edema; R23.0 Cyanosis; M79.89 Other specified soft tissue disorders; R42 Dizziness and giddiness; R00.0 Tachycardia, unspecified; F17.210 Nicotine dependence, cigarettes, uncomplicated; E11.40 Type 2 diabetes mellitus with diabetic neuropathy, unspecified; Z86.711 Personal history of pulmonary embolism; Z86.73 Personal history of transient ischemic attack (TIA), and cerebral infarction without residual deficits; Z79.84 Long term (current) use of oral hypoglycemic drugs; Z79.899 Other long term (current) drug therapy
CPT/HCPCS: 71045; 71275; 80053; 82550; 83880; 84484; 85025; 86140; 93005; 94760

== ENCOUNTER 2021-12-18 09:45 | Outpatient (CLI) | payer OTHER ==
[2021-12-18 12:50] LABS: ALT (SGPT) 33 U/L (8-55); AST (SGOT) 37 U/L (5-34); Albumin 3.9 g/dL (3.5-5.0); Alkaline Phosphatase 105 U/L (40-110); Anion Gap 15 mmol/L (10-20); BUN (Urea Nitrogen) 12 mg/dL (8.4-25.7); Bilirubin, Total 0.3 mg/dL (0.2-1.2); Calc. Creatinine Clearance 0 mL/min (70-130); Calcium 8.8 mg/dL (7.8-10.44); Carbon Dioxide 23 mmol/L (22-29); Chloride 103 mmol/L (98-107); Globulin 4.4 g/dL (2.4-3.5); Glucose 134 mg/dL (70-105); Potassium 4.5 mmol/L (3.5-5.1); Protein, Total 8.3 g/dL (6.0-8.3); Sodium 136 mmol/L (136-145)
[2021-12-18 19:21] LABS: SARS-CoV-2 PCR by NAA Not Detected (NotDetected)
== END 2021-12-18 09:46 | disposition home or self-care (01) ==
LOC: LABBT 09:45
PROVIDERS: ATTEND Internal Medicine Cardiovascular Disease
DX: Z01.818 Encounter for other preprocedural examination (principal); Z20.822 Contact with and (suspected) exposure to COVID-19
CPT/HCPCS: 80053; 93005; 93010; U0003; U0005

== ENCOUNTER 2021-12-30 12:13 | Outpatient (CLI) | payer OTHER ==
[2021-12-31 08:37] LABS: SARS-CoV-2 PCR by NAA Not Detected (NotDetected)
== END 2021-12-30 12:14 | disposition home or self-care (01) ==
LOC: LABBT 12:13
PROVIDERS: ATTEND Internal Medicine Cardiovascular Disease
DX: Z01.812 Encounter for preprocedural laboratory examination (principal); R94.39 Abnormal result of other cardiovascular function study; Z20.822 Contact with and (suspected) exposure to COVID-19
CPT/HCPCS: U0003; U0005

== ENCOUNTER 2022-01-12 11:17 | Outpatient (CLI) | payer OTHER ==
[2022-01-12 14:39] LABS: #Basophils 0.1 10x3/uL (0.0-0.2); #Eosinphils 0.1 10x3/uL (0.0-0.5); #Monocytes 0.6 10x3/uL (0.0-1.1); #Neutrophils 4.9 10x3/uL (1.5-8.4); %Basophils 0.6 % (0.0-2.0); %Eosinophils 1.3 % (0.0-6.0); %Lymphocytes 29.7 % (18.0-47.0); %Neutrophils 60.9 % (40.0-75.0); Hemoglobin 16.1 g/dL (13.5-17.5); Mean Corpuscular HGB CONC 33.8 g/dL (32.0-36.0); Mean Corpuscular Hemoglobin 30.5 pg (27.0-33.0); Mean Corpuscular Volume 90.3 fl (81.2-95.1); Mean Platelet Volume 9.1 fl (7.4-10.4); Platelet Count 313 10x3/uL (150-450); RBC Distribution Width 12.7 % (11.5-14.5); Red Blood Cell (RBC) Count 5.28 10x6/uL (4.32-5.72)
[2022-01-12 15:14] LABS: ALT (SGPT) 34 U/L (8-55); AST (SGOT) 34 U/L (5-34); Albumin 4.1 g/dL (3.5-5.0); Alkaline Phosphatase 97 U/L (40-110); Anion Gap 17 mmol/L (10-20); BUN (Urea Nitrogen) 13 mg/dL (8.4-25.7); Bilirubin, Total 0.5 mg/dL (0.2-1.2); Calc. Creatinine Clearance 0 mL/min (70-130); Calcium 9.2 mg/dL (7.8-10.44); Carbon Dioxide 25 mmol/L (22-29); Chloride 98 mmol/L (98-107); Globulin 4.8 g/dL (2.4-3.5); Glucose 133 mg/dL (70-105); Potassium 3.7 mmol/L (3.5-5.1); Protein, Total 8.9 g/dL (6.0-8.3); Sodium 136 mmol/L (136-145)
[2022-01-13 07:53] LABS: SARS-CoV-2 PCR by NAA Not Detected (NotDetected)
== END 2022-01-12 11:18 | disposition home or self-care (01) ==
LOC: LABBT 11:17
PROVIDERS: ATTEND Internal Medicine Cardiovascular Disease
DX: Z01.812 Encounter for preprocedural laboratory examination (principal); Z20.822 Contact with and (suspected) exposure to COVID-19
CPT/HCPCS: 80053; 85025; U0003; U0005

== ENCOUNTER 2022-01-15 06:05 | Day surgery (SDC) | payer OTHER ==
[2022-01-09 15:19] VITALS: BMI 40.4
[2022-01-15] MEDS ORDERED: Heparin 10,000 UNITS/ 10 ML VIAL ONE (06:31)
[2022-01-15] MEDS ORDERED: Lidocaine 1% (PF) 30 ML VIAL ONE (06:31)
[2022-01-15 06:59] LABS: Cardiac Risk 4.3 (Less than 4.5)
[2022-01-15] MEDS ORDERED: Midazolam HCl 2 mg/2 ml Vial ONE (07:11)
[2022-01-15] MEDS ORDERED: Fentanyl 250 MCG/5 ML VIAL ONE (07:11)
[2022-01-15] MEDS ORDERED: Nitroglycerin 100MG/250ML BOT 250 ML ONE (07:26)
[2022-01-15] MEDS ORDERED: Protamine Sulfate 50 MG/5 ML VIAL ONE (07:56)
[2022-01-15] MEDS ORDERED: Acetaminophen/Codeine 30-300mg Tablet ONE ×2 (08:07→11:52)
[2022-01-15] MEDS ORDERED: Iopamidol 370 76% 50 ML VIAL FS ONE (09:31)
[2022-01-15] MEDS ORDERED: Iopamidol 370 76% 100 ML VIAL ONE (09:31)
[2022-01-15] MEDS ORDERED: Nitroglycerin 0.4 MG TAB (25 Tab Bottle) SL PRN (12:12)
[2022-01-15] MEDS ORDERED: Acetaminophen/Codeine 30-300mg Tablet PO PRN ×2 (12:13)
[2022-01-15] MEDS ORDERED: Sodium Chloride 0.9% 1,000 ML IV SCH (12:15)
== END 2022-01-15 13:43 | disposition home or self-care (01) ==
LOC: CCL 06:05
PROVIDERS: ATTEND Internal Medicine Cardiovascular Disease
PROC: 4A023N7 Measurement of Cardiac Sampling and Pressure, Left Heart, Percutaneous Approach (ICD-10-PCS; principal; 2022-01-15)
PROC: B2111ZZ Fluoroscopy of Multiple Coronary Arteries using Low Osmolar Contrast (ICD-10-PCS; principal; 2022-01-15)
DX: R94.39 Abnormal result of other cardiovascular function study (principal); I10 Essential (primary) hypertension; E11.9 Type 2 diabetes mellitus without complications; E78.5 Hyperlipidemia, unspecified; F17.200 Nicotine dependence, unspecified, uncomplicated; Z79.82 Long term (current) use of aspirin; Z79.84 Long term (current) use of oral hypoglycemic drugs; Z79.899 Other long term (current) drug therapy; Z91.018 Allergy to other foods
CPT/HCPCS: 36415; 80061; 85347; 93458; 99152; J1644; J2001; J2250; J2720; J3010; Q9967

== ENCOUNTER 2022-12-09 13:01 | Observation (INO) | payer OTHER ==
[~2022-12-09 13:01] MED LIST changes: -Iopamidol 370 76% 100 ML VIAL ONE; +Iopamidol-370 76% 500 ML 1 ML ONE
[2022-12-09] MEDS ORDERED: LORazepam 2 MG/ML SYR.(CARPUJECT) ONE (13:26)
[2022-12-09 14:32] LABS: #Eosinphils 0.1 thou/uL (0.0-0.7); #Lymphocytes 1.8 thou/uL (1.20-3.40); #Monocytes 0.4 thou/uL (0.11-0.59); #Neutrophils 3.4 thou/uL (1.40-6.50); %Basophils 0.2 % (0.0-1.0); %Eosinophils 1.8 % (0.0-10.0); %Lymphocytes 32.5 % (21.0-51.0); %Monocytes 6.2 % (0.0-10.0); %Neutrophils 59.4 % (42.0-75.0); Hemoglobin 14.9 g/dL (14.0-18.0); Mean Corpuscular HGB CONC 33.8 g/dL (32.0-36.0); Mean Corpuscular Hemoglobin 30.7 pg (27.0-31.0); Mean Platelet Volume 6.4 fL (7.4-10.4); Platelet Count 266 10x3/uL (130-400); RBC Distribution Width 11.8 % (11.5-14.5); Red Blood Cell (RBC) Count 4.86 mill/uL (4.70-6.10); White Blood Cell (WBC) Count 5.6 10x3/uL (4.8-10.8)
[2022-12-09 14:54] LABS: ALT (SGPT) 24 U/L (8-55); AST (SGOT) 29 U/L (5-34); Albumin 3.7 g/dL (3.5-5.0); Alkaline Phosphatase 100 U/L (40-110); Anion Gap 11 mmol/L (10-20); BUN (Urea Nitrogen) 9 mg/dL (8.4-25.7); Bilirubin, Total 0.6 mg/dL (0.2-1.2); Calc. Creatinine Clearance 0 mL/min (70-130); Calcium 8.8 mg/dL (7.8-10.44); Carbon Dioxide 25 mmol/L (22-29); Chloride 101 mmol/L (98-107); Estimated GFR 104; Globulin 4.1 g/dL (2.4-3.5); Glucose 162 mg/dL (70-105); Protein, Total 7.8 g/dL (6.0-8.3); Sodium 133 mmol/L (136-145)
[2022-12-09] MEDS ORDERED: Morphine 4 MG/ML VIAL ONE ×2 (15:38→16:57)
[2022-12-09] MEDS ORDERED: Diazepam 5 MG TAB ONE (15:38)
[2022-12-09] MEDS ORDERED: Ketorolac Tromethamine 30 MG/ML VIAL ONE (16:57)
[2022-12-09] MEDS ORDERED: Aspirin Chewable 81 MG TAB ONE (18:44)
[2022-12-09] MEDS ORDERED: Dextrose 5% in Water 1,000 ML IV PRN (20:00)
[2022-12-09] MEDS ORDERED: traZODone HCl 50 MG TAB PO PRN (20:00)
[2022-12-09] MEDS ORDERED: Ondansetron PF 4 MG/2 ML Vial IVP PRN (20:00)
[2022-12-09] MEDS ORDERED: Ondansetron ODT 4 MG TAB PO PRN (20:00)
[2022-12-09] MEDS ORDERED: Insulin Regular 300 UNITS/3 ML VIAL SC PRN ×2 (20:00)
[2022-12-09] MEDS ORDERED: HYDROcodone/Acetaminophen 7.5/325 mg Tablet PO PRN (20:00)
[2022-12-09] MEDS ORDERED: Lorazepam 2 MG/ML VIAL SLOW IVP PRN (20:00)
[2022-12-09] MEDS ORDERED: Nicotine 14 MG PATCH TD SCH (20:00)
[2022-12-09] MEDS ORDERED: Dextrose 50% Abboject 50 ML SYRINGE SLOW IVP PRN (20:00)
[2022-12-09] MEDS ORDERED: Acetaminophen 325 MG TAB PO PRN (20:00)
[2022-12-09] MEDS ORDERED: Phenytoin Extended Release 100 MG CAP PO SCH (21:00)
[2022-12-09] MEDS ORDERED: Atorvastatin Calcium 10 MG TAB PO SCH (21:00)
[2022-12-09 21:05] LABS: Troponin I Less than 0.010 ng/mL (< 0.028)
[2022-12-09] MEDS ORDERED: Nicotine 14 MG PATCH TD PRN (21:34)
[2022-12-09] MEDS ORDERED: tiZANidine HCl 4 MG TAB PO SCH (22:30)
[2022-12-09 23:05] VITALS: BP 121/84; TEMP 98; BMI 35.9
[2022-12-09 23:38] LABS: Troponin I Less than 0.010 ng/mL (< 0.028)
[2022-12-10] MEDS ORDERED: tiZANidine HCl 4 MG TAB PO SCH (09:00)
== END 2022-12-10 00:08 | disposition left against medical advice (07) ==
LOC: ERS 13:01 → ERHOLD 19:54
PROVIDERS: ADMIT Internal Medicine; ATTEND Internal Medicine
DX: R07.9 Chest pain, unspecified (principal); R06.02 Shortness of breath; M25.511 Pain in right shoulder; M54.89 Other dorsalgia; R56.9 Unspecified convulsions; E11.42 Type 2 diabetes mellitus with diabetic polyneuropathy; I10 Essential (primary) hypertension; E78.5 Hyperlipidemia, unspecified; E03.9 Hypothyroidism, unspecified; F17.210 Nicotine dependence, cigarettes, uncomplicated; K76.0 Fatty (change of) liver, not elsewhere classified; Z53.29 Procedure and treatment not carried out because of patient's decision for other reasons; Z86.73 Personal history of transient ischemic attack (TIA), and cerebral infarction without residual deficits; Z79.82 Long term (current) use of aspirin; Z79.84 Long term (current) use of oral hypoglycemic drugs; Z79.890 Hormone replacement therapy; Z79.899 Other long term (current) drug therapy; Z91.018 Allergy to other foods
CPT/HCPCS: 36415; 71045; 71275; 74174; 76705; 80053; 83880; 84484; 85025; 93005; 96374; 96375; 96376; G0378; J1885; J2060; J2270; Q9967

== ENCOUNTER 2023-02-18 13:09 | Inpatient (IN) | payer OTHER ==
[~2023-02-18 13:09] MED LIST changes: -Iopamidol-370 76% 500 ML 1 ML ONE; +Iopamidol-370 76% 500 ML MDV (1 ML CHARGE) ONE
[2023-02-18 13:35] LABS: #Eosinphils 0.1 thou/uL (0.0-0.7); #Lymphocytes 2.2 thou/uL (1.20-3.40); #Monocytes 0.6 thou/uL (0.11-0.59); #Neutrophils 3.3 thou/uL (1.40-6.50); %Basophils 0.3 % (0.0-1.0); %Eosinophils 1.6 % (0.0-10.0); %Lymphocytes 35.5 % (21.0-51.0); %Monocytes 9.8 % (0.0-10.0); %Neutrophils 52.8 % (42.0-75.0); Hemoglobin 14.9 g/dL (14.0-18.0); Mean Corpuscular HGB CONC 33.2 g/dL (32.0-36.0); Mean Corpuscular Volume 90.5 fl (78.0-98.0); Mean Platelet Volume 6.8 fL (7.4-10.4); Platelet Count 256 10x3/uL (130-400); RBC Distribution Width 11.9 % (11.5-14.5); Red Blood Cell (RBC) Count 4.97 mill/uL (4.70-6.10); White Blood Cell (WBC) Count 6.2 10x3/uL (4.8-10.8)
[2023-02-18 14:06] LABS: ALT (SGPT) 24 U/L (8-55); AST (SGOT) 39 U/L (5-34); Albumin 3.7 g/dL (3.5-5.0); Alkaline Phosphatase 121 U/L (40-110); Anion Gap 15 mmol/L (10-20); BUN (Urea Nitrogen) 11 mg/dL (8.4-25.7); Bilirubin, Total 0.2 mg/dL (0.2-1.2); CK (CPK) 165 U/L (30-200); Calc. Creatinine Clearance 0 mL/min (70-130); Calcium 9.3 mg/dL (7.8-10.44); Carbon Dioxide 22 mmol/L (22-29); Chloride 100 mmol/L (98-107); Estimated GFR 83; Globulin 5.3 g/dL (2.4-3.5); Glucose 371 mg/dL (70-105); Lipase 136 U/L (8-78); Potassium 5.1 mmol/L (3.5-5.1); Sodium 132 mmol/L (136-145)
[2023-02-18] MEDS ORDERED: FENTANYL 50 MCG/ML 1 ML VIAL ONE (14:20)
[2023-02-18] MEDS ORDERED: Morphine 4 MG/ML VIAL ONE (14:24)
[2023-02-18] MEDS ORDERED: Nitroglycerin 2% Ointment 1 INCH/1 GM Packet ONE (14:59)
[2023-02-18] MEDS ORDERED: Aspirin Chewable 81 MG TAB ONE (15:00)
[2023-02-18] MEDS ORDERED: Nitroglycerin 0.4 MG TAB 1 EACH ONE (15:03)
[2023-02-18 17:41] VITALS: BMI 41.4
[2023-02-18] MEDS ORDERED: Ondansetron PF 4 MG/2 ML Vial IVP PRN (17:45)
[2023-02-18] MEDS ORDERED: Ondansetron ODT 4 MG TAB SL PRN (17:45)
[2023-02-18] MEDS ORDERED: Acetaminophen 325 MG TAB PO PRN (17:45)
[2023-02-18] MEDS ORDERED: HYDROcodone/Acetaminophen 5/325 mg Tablet PO PRN (17:51)
[2023-02-18] MEDS ORDERED: Dextrose 50% Abboject 50 ML SYRINGE SLOW IVP PRN (17:55)
[2023-02-18] MEDS ORDERED: Dextrose 5% in Water 1,000 ML IV PRN (17:55)
[2023-02-18] MEDS: HYDROcodone/Acetaminophen 5/325 mg Tablet PO PRN (18:08)
[2023-02-18 18:46] LABS: Troponin I Less than 0.010 ng/mL (< 0.028)
[2023-02-18] MEDS: Nicotine 21 MG PATCH TD SCH (20:33)
[2023-02-18] MEDS: HumaLOG 300 UNITS/3 ML VIAL SC PRN (20:39)
[2023-02-18] MEDS ORDERED: Atorvastatin Calcium 40 MG TAB PO SCH (21:00)
[2023-02-18 21:52] LABS: Troponin I Less than 0.010 ng/mL (< 0.028)
[2023-02-19] MEDS: HumaLOG 300 UNITS/3 ML VIAL SC PRN ×3 (05:57→20:38)
[2023-02-19 06:03] LABS: #Eosinphils 0.1 thou/uL (0.0-0.7); #Lymphocytes 1.7 thou/uL (1.20-3.40); #Monocytes 0.4 thou/uL (0.11-0.59); #Neutrophils 2.9 thou/uL (1.40-6.50); %Basophils 0.5 % (0.0-1.0); %Eosinophils 1.8 % (0.0-10.0); %Lymphocytes 33.6 % (21.0-51.0); %Neutrophils 56.1 % (42.0-75.0); Hemoglobin 14.2 g/dL (14.0-18.0); Mean Corpuscular HGB CONC 35.3 g/dL (32.0-36.0); Mean Corpuscular Hemoglobin 32.3 pg (27.0-31.0); Mean Corpuscular Volume 91.4 fl (78.0-98.0); Mean Platelet Volume 6.7 fL (7.4-10.4); Platelet Count 225 10x3/uL (130-400); RBC Distribution Width 11.9 % (11.5-14.5); Red Blood Cell (RBC) Count 4.39 mill/uL (4.70-6.10); White Blood Cell (WBC) Count 5.1 10x3/uL (4.8-10.8)
[2023-02-19 06:23] LABS: Anion Gap 11 mmol/L (10-20); BUN (Urea Nitrogen) 10 mg/dL (8.4-25.7); Calc. Creatinine Clearance 206 mL/min (70-130); Calcium 8.8 mg/dL (7.8-10.44); Carbon Dioxide 26 mmol/L (22-29); Cardiac Risk 5.4 (Less than 4.5); Chloride 99 mmol/L (98-107); Cholesterol 140 mg/dl (< 200 Desired); Estimated GFR 103; Glucose 333 mg/dL (70-105); HDL Cholesterol 26 mg/dL (>60 Neg Risk); LDL Cholesterol, Calculated 72 mg/dL; Potassium 3.7 mmol/L (3.5-5.1); Sodium 132 mmol/L (136-145); Triglycerides 209 mg/dL (Less than 150)
[2023-02-19] MEDS: Aspirin 325 mg Enteric Coated Tablet PO SCH (08:40)
[2023-02-19] MEDS: HYDROcodone/Acetaminophen 5/325 mg Tablet PO PRN ×2 (11:21→15:30)
[2023-02-19] MEDS ORDERED: oxyCODONE 5 MG TAB PO PRN (16:47)
[2023-02-19] MEDS ORDERED: Acetaminophen 500 MG TAB PO PRN (16:47)
[2023-02-19] MEDS ORDERED: Dexamethasone 10 MG in Sodium Chloride 0.9% 50 ML IVPB SCH (17:00)
[2023-02-19] MEDS ORDERED: Lorazepam 2 MG/ML VIAL ONE (17:52)
[2023-02-19] MEDS ORDERED: Dexamethasone 10 MG/ML VIAL SLOW IVP SCH (18:00)
[2023-02-19] MEDS ORDERED: Lorazepam 2 MG/ML VIAL SLOW IVP SCH (18:15)
[2023-02-19] MEDS: Nicotine 21 MG PATCH TD SCH (20:35)
[2023-02-19] MEDS ORDERED: Atorvastatin Calcium 40 MG TAB PO SCH (21:00)
[2023-02-19] MEDS ORDERED: Dexamethasone 4 MG in Sodium Chloride 0.9% 50 ML IVPB SCH (21:00)
[2023-02-19] MEDS ORDERED: traZODone HCl 50 MG TAB PO SCH (21:00)
[2023-02-19] MEDS: Dexamethasone 4 mg/ml Vial SLOW IVP SCH (23:52)
[2023-02-20] MEDS: HumaLOG 300 UNITS/3 ML VIAL SC PRN ×2 (04:43→13:24)
[2023-02-20] MEDS ORDERED: Levothyroxine Sodium 112 MCG TAB PO SCH (06:00)
[2023-02-20] MEDS ORDERED: Levothyroxine Sodium 25 MCG TAB PO SCH (06:00)
[2023-02-20] MEDS: Dexamethasone 4 mg/ml Vial SLOW IVP SCH (08:26)
[2023-02-20] MEDS: Aspirin 325 mg Enteric Coated Tablet PO SCH (08:26)
[2023-02-20] MEDS ORDERED: Citalopram 20 MG TAB PO SCH (09:00)
[2023-02-20] MEDS ORDERED: Furosemide 20 MG TAB PO SCH (09:00)
[2023-02-20 12:29] VITALS: BP 112/76; TEMP 98.3
== END 2023-02-20 13:59 | disposition home or self-care (01) | DRG 880 ==
LOC: ERS 13:09 → NEURO 15:22 → OBSVTOIN 17:12
PROVIDERS: ADMIT Hospitalist; ATTEND Hospitalist
DX: F44.4 Conversion disorder with motor symptom or deficit (principal); G45.9 Transient cerebral ischemic attack, unspecified; Z68.41 Body mass index [BMI] 40.0-44.9, adult; E03.9 Hypothyroidism, unspecified; I10 Essential (primary) hypertension; E11.9 Type 2 diabetes mellitus without complications; E78.5 Hyperlipidemia, unspecified; F17.210 Nicotine dependence, cigarettes, uncomplicated; R07.89 Other chest pain; E66.01 Morbid (severe) obesity due to excess calories; G89.29 Other chronic pain; G40.909 Epilepsy, unspecified, not intractable, without status epilepticus; Z91.018 Allergy to other foods; Z79.899 Other long term (current) drug therapy; Z79.890 Hormone replacement therapy; Z79.4 Long term (current) use of insulin; Z79.84 Long term (current) use of oral hypoglycemic drugs; Z98.1 Arthrodesis status; Z86.73 Personal history of transient ischemic attack (TIA), and cerebral infarction without residual deficits; Z98.890 Other specified postprocedural states; Z82.49 Family history of ischemic heart disease and other diseases of the circulatory system
CPT/HCPCS: 36415; 36416; 62305; 70450; 71045; 71275; 72125; 72128; 72131; 74174; 80048; 80053; 80061; 82550; 83690; 84484; 85025; 93005; 93306; 93880; 95712; 95819; 95957; 96374; G0378; J1100; J1650; J1815; J2060; J2270; J3010; Q9967